=== PATIENT | female | born 1950 | race Two or more races ===

== ENCOUNTER 2021-06-14 00:51 | Emergency (ER) | payer MEDICARE, MEDICAID ==
[~2021-06-14] VITALS: Ht 152.4 cm; Wt 72.6 kg
[~2021-06-14 00:51] MED LIST: ENAL10TA19 MT; METO-539 MT; OMEP20CA14 MT
[2021-06-14] MEDS ORDERED: ASPIRIN 81MG TABLET PO ONE (01:45)
[2021-06-14 02:19] LABS: BASOPHILS % 1.8 % (0.0-2.0); EOSINOPHILS % 1.4 % (0.0-5.0); HEMATOCRIT. 40.9 % (36.0-48.0); HEMOGLOBIN. 13.6 g/dL (12.0-16.0); LYMPHOCYTES % 23.2 % (20.0-50.0); MEAN CORPUSCULAR HEMOGLOBIN 32.1 pg (28.0-32.0); MEAN CORPUSCULAR VOLUME 96.7 fL (81.0-99.0); MEAN PLATELET VOLUME 9.1 fl (7.4-10.4); MONOCYTES % 7.5 % (2.0-8.0); NEUTROPHILS % 66.1 % (40.0-76.0); PLATELET 247 x1000/uL (130-400); RED BLOOD CELL COUNT 4.23 mill/uL (4.2-5.4); RED CELL DISTRIBUTION WIDTH 14.4 % (11.6-14.6)
[2021-06-14 02:25] LABS: CHLORIDE 110 mEq/L (98-107)
[2021-06-14 05:11] VITALS: BP 124/62
== END 2021-06-14 05:20 | disposition home or self-care (01) ==
LOC: ER 01:02
DX: R07.89 Other chest pain (principal); F41.9 Anxiety disorder, unspecified; Z86.16 Personal history of COVID-19; E78.00 Pure hypercholesterolemia, unspecified; I10 Essential (primary) hypertension; Z98.890 Other specified postprocedural states
CPT/HCPCS: 36415; 71045; 80053; 83880; 84484; 85025; 93005; 99285

== ENCOUNTER 2021-06-22 23:19 | Inpatient (IN) | payer MEDICARE, MEDICAID ==
[~2021-06-22] VITALS: Ht 152.4 cm; Wt 73.9 kg
[2021-06-23 01:23] LABS: BASOPHILS % 1.4 % (0.0-2.0); EOSINOPHILS % 3.1 % (0.0-5.0); HEMATOCRIT. 40.4 % (36.0-48.0); HEMOGLOBIN. 13.5 g/dL (12.0-16.0); LYMPHOCYTES % 28.7 % (20.0-50.0); MEAN CORPUSCULAR HEMOGLOBIN 32.7 pg (28.0-32.0); MEAN CORPUSCULAR VOLUME 97.6 fL (81.0-99.0); MEAN PLATELET VOLUME 8.3 fl (7.4-10.4); MONOCYTES % 6.5 % (2.0-8.0); NEUTROPHILS % 60.3 % (40.0-76.0); PLATELET 274 x1000/uL (130-400); RED BLOOD CELL COUNT 4.14 mill/uL (4.2-5.4); RED CELL DISTRIBUTION WIDTH 14.1 % (11.6-14.6)
[2021-06-23 01:29] LABS: CHLORIDE 110 mEq/L (98-107)
[2021-06-23 01:33] LABS: ETHANOL BLOOD < 10 mg/dL
[2021-06-23 01:36] LABS: *BARBITURATES SCREEN URINE NEGATIVE (NEGATIVE); CANNABINOID URINE SCREEN NEGATIVE (NEGATIVE); PHENCYCLIDINE URINE SCREEN NEGATIVE (NEGATIVE)
[2021-06-23 01:37] LABS: *AMPHETAMINES SCREEN URINE NEGATIVE (NEGATIVE); *BENZODIAZEPINES SCREEN URINE NEGATIVE (NEGATIVE); *COCAINE SCREEN URINE NEGATIVE (NEGATIVE); METHADONE URINE SCREEN NEGATIVE (NEGATIVE); OPIATES URINE SCREEN NEGATIVE (NEGATIVE)
[2021-06-23] MEDS ORDERED: ASPIRIN 81MG TABLET PO SCH (04:15)
[2021-06-23] MEDS ORDERED: ONDANSETRON HCL 4MG/2ML INJ IV PRN (08:30)
[2021-06-23] MEDS: ASPIRIN 81MG TABLET PO SCH (09:00)
[2021-06-23 22:45] VITALS: BP 167/66
[2021-06-23] MEDS ORDERED: LORAZEPAM 1MG TABLET PO PRN (23:45)
[2021-06-23] MEDS: ACETAMINOPHEN 325MG TABLET PO PRN (23:58)
[2021-06-24] VITALS: BP 167/66
[2021-06-24] MEDS ORDERED: KETO60VI SL (02:05)
[2021-06-24] MEDS ORDERED: ZOLP5TAB8 MT (02:05)
[2021-06-24] MEDS ORDERED: CLON-457 PO (02:05)
[2021-06-24] MEDS ORDERED: *PATIENT'S OWN MEDICATION STORAGE XX SCH (03:15)
[2021-06-24 04:00] VITALS: BP 125/74
[2021-06-24 07:47] VITALS: BP 108/69
[2021-06-24] MEDS: ASPIRIN 81MG TABLET PO SCH (09:10)
[2021-06-24 11:59] VITALS: BP 128/93
[2021-06-24] MEDS ORDERED: REGADENOSON 0.4 MG/5 ML IV ONE (15:00)
[2021-06-24 15:58] VITALS: BP 122/90
[2021-06-24 20:00] VITALS: BP 161/111
[2021-06-24] MEDS ORDERED: ZOLPIDEM TARTRATE 5MG TABLET PO PRN (22:30)
[2021-06-24] MEDS: METOPROLOL TARTRATE 50MG TABLET PO SCH (22:44)
[2021-06-25 00:20] VITALS: BP 138/100
[2021-06-25 04:10] VITALS: BP 129/82
[2021-06-25] MEDS: ACETAMINOPHEN 325MG TABLET PO PRN (05:21)
[2021-06-25 08:00] VITALS: BP 131/86
[2021-06-25] MEDS ORDERED: REGADENOSON 0.4 MG/5 ML IV ONE (08:53)
[2021-06-25] MEDS: ASPIRIN 81MG TABLET PO SCH (10:02)
[2021-06-25] MEDS: METOPROLOL TARTRATE 50MG TABLET PO SCH (10:02)
[2021-06-25 12:00] VITALS: BP 127/95
[2021-06-25 13:41] VITALS: BP 127/95
== END 2021-06-25 14:10 | disposition home or self-care (01) | DRG 206 ==
LOC: ER 23:19 → MICUSO 06-23 02:53 → 6WST 06-23 20:20
PROVIDERS: ADMIT Internal Medicine; ATTEND Internal Medicine
DX: M94.0 Chondrocostal junction syndrome [Tietze] (principal); E87.8 Other disorders of electrolyte and fluid balance, not elsewhere classified; R00.1 Bradycardia, unspecified; F41.9 Anxiety disorder, unspecified; I25.10 Atherosclerotic heart disease of native coronary artery without angina pectoris; Z20.822 Contact with and (suspected) exposure to COVID-19; I10 Essential (primary) hypertension; K21.9 Gastro-esophageal reflux disease without esophagitis; K59.00 Constipation, unspecified; Z82.49 Family history of ischemic heart disease and other diseases of the circulatory system; Z95.5 Presence of coronary angioplasty implant and graft; Z86.16 Personal history of COVID-19
CPT/HCPCS: 36415; 71045; 78452; 80053; 80305; 80320; 83880; 84484; 85025; 87426; 93005; 93017; 93306; 99285; A9500; J2785; G0480